=== PATIENT | male | born 1985 | race Caucasian/White ===

== ENCOUNTER 2022-05-06 17:45 | Emergency (ER) | payer MEDICAID ==
[~2022-05-06] VITALS: Ht 188 cm; Wt 80.0 kg
--- NOTE | 2022-05-06 18:45 | NUR ---
HISTORY: Pt brought to ER overflow accompanied by friend. Pt is anxious on presentation, paces, and talks to himself. PT states he was diagnosed schizophrenic and has been hearing voices since 2015. PT has a hx of drug use, polyopharmacy. "I pretty much do whatever." He states he has been on medications in the past, but none that would "take away the voices." Female friend states that he has a hx of violent outbursts and she is afraid to go to sleep at night if he is at her house. She states he makes bizarre comments and talks about necromancy, and the zodiac killer family. PT is HIV positive and on HIV meds.
[2022-05-06] MEDS ORDERED: LORazepam 1 MG tablet PO ONE (18:55)
--- NOTE | 2022-05-06 19:10 | NUR ---
Pt is becoming agitated at the voices, making statements like "why is he going to kill him?" "you don't have to be so mean!" He paces back anf forth and is hyperverbal. consulted, 2mg ativan PO given.
[2022-05-06 20:26] LABS: BASOPHILS % (AUTO) 0.6 % (0-1); EOSINOPHILS % (AUTO) 0.7 % (0-6); HEMATOCRIT 44.3 % (42.0-52.0); LYMPHOCYTES # (AUTO) 1.4 X10'3 (1.1-4.8); LYMPHOCYTES % (AUTO) 37.1 % (21-51); MEAN CORPUSCULAR HEMOGLOBIN 27.7 PG (27.0-31.0); MEAN CORPUSCULAR HGB CONC 33.8 g/dL (33.0-36.5); MEAN CORPUSCULAR VOLUME 82.1 FL (78-98); MEAN PLATELET VOLUME 8.5 FL (7.4-10.4); MONOCYTES # (AUTO) 0.6 X10'3 (0-0.9); MONOCYTES % (AUTO) 16.8 % (2-12); NEUTROPHILS # (AUTO) 1.7 X10'3 (1.8-7.7); NEUTROPHILS % (AUTO) 44.8 % (42-75); PLATELET COUNT 188 X10'3 (140-440); RED CELL DISTRIBUTION WIDTH 14.5 % (11.5-14.5); WHITE BLOOD COUNT 3.9 X10'3 (4.5-11.0)
[2022-05-06 20:39] LABS: ALANINE AMINOTRANSFERASE 13 U/L (12-78); ALBUMIN 4.1 G/DL (3.4-5.0); ALBUMIN/GLOBULIN RATIO 1.1 (1.1-1.5); ALKALINE PHOSPHATASE 62 IU/L (46-116); ANION GAP 11 (8-16); ASPARTATE AMINO TRANSFERASE 12 U/L (10-37); BILIRUBIN,TOTAL 0.8 MG/DL (0.1-1.0); BLOOD UREA NITROGEN 17 MG/DL (7-18); BUN/CREATININE RATIO 12.1 (5.4-32.0); CALCIUM 8.8 MG/DL (8.5-10.1); CHLORIDE 104 MMOL/L (99-107); GLUCOSE 87 MG/DL (70-104); POTASSIUM 3.4 MMOL/L (3.5-5.1); SODIUM 144 MMOL/L (135-145); TOTAL CARBON DIOXIDE 28.9 MMOL/L (24-32); TOTAL PROTEIN 7.8 G/DL (6.4-8.2); eGFR 57 ML/MIN
[2022-05-06 20:48] LABS: ETHANOL < 0.010 GM/DL (0.0-0.010)
[2022-05-06 23:52] VITALS: BP 132/82
== END 2022-05-06 23:30 | disposition home or self-care (01) ==
LOC: ER 17:46
DX: F20.9 Schizophrenia, unspecified (principal)
CPT/HCPCS: 80053; 80320; 84443; 85025; 99283